=== PATIENT | male | born 1950 | race Caucasian/White ===

== ENCOUNTER 2017-04-11 05:20 | Day surgery (SDC) | payer MEDICARE, BC ==
[~2017-04-11] VITALS: Ht 182.9 cm; Wt 75.3 kg
--- NOTE | 2017-04-12 07:48 | OR ---
ADMIT: 04/11/2017 RM/LOC: [facility] MR#: [id number] [facility]#: [id number] [address] [id number] [place] [address] [place] [id number] Operative/Delivery Room Report SEX: M AGE: 66 : 1950 SURGERY DATE: 04/11/2017 SURGEON: Vipul Rossi MD PROCEDURE: Total colonoscopy with hot biopsy polypectomy. PREOPERATIVE DIAGNOSIS: Colon polyps. POSTOPERATIVE DIAGNOSIS: Sigmoid polyp. DESCRIPTION OF PROCEDURE: The patient was brought to procedure room, placed in left lateral decubitus position. Informed consent had been obtained preoperatively. The risks and benefits including, but not limited to, perforation, sedation, bleeding were discussed with the patient and agreed upon. All questions were answered, alternatives discussed. The patient agreed. TIVA was provided by Dr. Sosa. Anal inspection, digital examination revealed no abnormalities or obstructing masses. Prostate was normal in size, texture, and contour without nodularity. Olympus videoendoscope, model CF- H180AL, was inserted into the rectum and advanced to cecum without difficulty. Appendiceal orifice was identified. Ileocecal valve could not be cannulated due to position. The scope was slowly withdrawn through a normal cecum, ascending, transverse, descending colon. In the mid sigmoid, there was a small polyp that was probably hyperplastic, this was grasped with the hot biopsy forceps, cauterized, and retrieved. The rectum was normal. Scope was retroflexed. The anal verge appeared normal. The patient tolerated the procedure well. No complications were expected. Blood loss was less than 1 mL. He will call me in 1 week for his biopsy report, or sooner if he should have any postoperative problems. Recommended due to his history of adenomatous colon polyps, he have repeat colonoscopy in 5 years unless signs or symptoms develop in the interval. Vipul Rossi MD/ amanda JOB #: [id number] CC: Vipul Rossi, Attending Physician Keshav Suh, Family Physician MD Blair Rodriguez, FRONT END WEB DESIGNER
== END 2017-04-11 09:54 | disposition home or self-care (01) ==
LOC: SSS 05:20
PROC: 0DBN8ZX Excision of Sigmoid Colon, Via Natural or Artificial Opening Endoscopic, Diagnostic (ICD-10-PCS; principal; 2017-04-11)
DX: K63.5 Polyp of colon (principal); I10 Essential (primary) hypertension; F17.200 Nicotine dependence, unspecified, uncomplicated